=== PATIENT | female | born 1940 | race Caucasian/White ===

== ENCOUNTER 2020-04-03 13:35 | Emergency (ER) | payer MEDICARE, OTHER ==
[~2020-04-03] VITALS: Ht 160 cm; Wt 62.5 kg
[~2020-04-03 13:35] MED LIST: GADOTERATE 10 MMOL/20 ML VIAL ONE
--- NOTE | 2020-04-03 14:18 | NUR ---
Pt states that she is "very healthy. But then I got shingles and maybe rheumatica, I started seeing white spots so I saw a optomologist, and she said my vision is great. And that I need to see a neuro-optomologist. And then today I saw a black curtain in the middle of my vision. Up until that point all my visual distrubances have been peripheral."
[2020-04-03 14:49] LABS: BASOPHILS % (AUTO) 1 % (0-1); EOSINOPHILS % (AUTO) 1 % (1-7); LYMPHOCYTES % (AUTO) 8 % (22-44); MEAN CORPUSCULAR HGB CONC 32.8 g/dL (32.4-35.8); MEAN PLATELET VOLUME 8.4 fL (7.4-10.4); MONOCYTES % (AUTO) 5 % (2-9); NEUTROPHILS % (AUTO) 84 % (42-75); PLATELET COUNT 334 x10^3/uL (130-400); RED BLOOD COUNT 4.11 x10^6/uL (3.82-5.3); RED CELL DISTRIBUTION WIDTH 19.2 % (9.6-15.2)
[2020-04-03 14:52] LABS: MD NO
[2020-04-03 14:56] LABS: ANION GAP 4 mmol/L (5-15); CALCIUM 8.9 mg/dL (8.5-10.1); CHLORIDE 107 mmol/L (98-107); CREATININE 0.52 mg/dL (0.55-1.02)
--- NOTE | 2020-04-03 15:10 | NUR ---
BREAK RN: MARIPOSA NOTED. PT TO MRI WITH TECH TRANSPORT.
[2020-04-03 17:38] VITALS: BP 128/78
== END 2020-04-03 17:42 | disposition home or self-care (01) ==
LOC: ED 16:15
DX: H53.133 Sudden visual loss, bilateral (principal); R51.9 Headache, unspecified; M54.2 Cervicalgia
CPT/HCPCS: 36415; 70548; 70551; 80048; 85025; 99285; A9575

== ENCOUNTER 2020-05-04 14:11 | Emergency (ER) | payer MEDICARE, OTHER ==
[~2020-05-04] VITALS: Ht 160 cm; Wt 60.2 kg
--- NOTE | 2020-05-04 15:21 | NUR ---
CYST ON LABIA TOLD TO COME TO ED PER PCP. NO FEVERS, STS SOME DISCHARGE.
[2020-05-04 16:05] VITALS: BP 139/73
== END 2020-05-04 16:17 | disposition home or self-care (01) ==
LOC: ED 16:00
DX: L72.0 Epidermal cyst (principal); N76.2 Acute vulvitis; M54.5 Low back pain
CPT/HCPCS: 99283